=== PATIENT | female | born 1990 | race Asian ===

== ENCOUNTER 2024-05-13 03:57 | Day surgery (SDC) | payer OTHER ==
[2024-04-30 12:38] VITALS: BMI 28.2
[2024-05-13] MEDS ORDERED: oxyCODONE HCL 5 MG TABLET PO PRN (08:09)
[2024-05-13] MEDS ORDERED: ACETAMINOPHEN 325 MG TABLET (FP) PO PRN (08:09)
[2024-05-13] MEDS ORDERED: IBUPROFEN 400 MG TABLET (FP) PO PRN (08:09)
[2024-05-13] MEDS ORDERED: MIDAZOLAM HCL 2 MG/2 ML SINGLE DOSE VIAL ONE (11:38)
[2024-05-13] MEDS ORDERED: PROPOFOL 20 ML ONE (11:42)
[2024-05-13] MEDS ORDERED: LACTATED RINGERS SOLUTION 1,000 ML IV SCH (12:45)
[2024-05-13 13:39] VITALS: PULSE 66; RESP 18; TEMP 97.5
[2024-05-13 14:17] VITALS: BP 113/78
== END 2024-05-13 14:33 | disposition home or self-care (01) ==
LOC: JASU-SURG 03:57
PROVIDERS: ATTEND Obstetrics & Gynecology
PROC: 0DNW4ZZ Release Peritoneum, Percutaneous Endoscopic Approach (ICD-10-PCS; 2024-05-13)
PROC: 0UB98ZZ Excision of Uterus, Via Natural or Artificial Opening Endoscopic (ICD-10-PCS; principal; 2024-05-13 10:00)
PROC: 0UDB8ZX Extraction of Endometrium, Via Natural or Artificial Opening Endoscopic, Diagnostic (ICD-10-PCS; 2024-05-13 10:00)
DX: N84.0 Polyp of corpus uteri (principal); N92.0 Excessive and frequent menstruation with regular cycle; N94.6 Dysmenorrhea, unspecified; D25.0 Submucous leiomyoma of uterus
CPT/HCPCS: 81025; 88305-TC; 94760